=== PATIENT | female | born 1975 | race Caucasian/White ===

== ENCOUNTER 2017-01-23 14:17 | Emergency (ER) | payer OTHER ==
[~2017-01-23 14:17] MED LIST: LIPITOR TAB 2020 MG PO; LISINOPRIL40 MG PO; ZESTORETIC 20-1 EACH PO
== END 2017-01-23 15:47 | disposition home or self-care (01) ==
LOC: ER1 14:17
DX: S93.491A Sprain of other ligament of right ankle, initial encounter (principal); I10 Essential (primary) hypertension; F17.210 Nicotine dependence, cigarettes, uncomplicated; W17.2XXA Fall into hole, initial encounter; X50.1XXA Overexertion from prolonged static or awkward postures, initial encounter; Y92.009 Unspecified place in unspecified non-institutional (private) residence as the place of occurrence of the external cause; Z79.899 Other long term (current) drug therapy
CPT/HCPCS: 73590; 73610; 73630; 99283